=== PATIENT | female | born 2000 | race Two or more races ===

== ENCOUNTER 2023-10-14 08:59 | Emergency (ER) | payer OTHER ==
[~2023-10-14] VITALS: Ht 162.6 cm; Wt 67.3 kg
[2023-10-14] MEDS: DiphenhydrAMINE HCL 25 MG CAPSULE PO ONE (09:35)
[2023-10-14] MEDS: FAMOTIDINE 20 MG TABLET PO ONE (09:35)
[2023-10-14] MEDS ORDERED: PRED-554 PO (09:54)
[2023-10-14] MEDS: PredniSONE 20 MG TABLET PO ONE (10:11)
[2023-10-14 10:16] VITALS: BP 108/65; PULSE 80; RESP 18; TEMP 98.2
== END 2023-10-14 10:17 | disposition home or self-care (01) ==
LOC: EMS 08:59
DX: L50.0 Allergic urticaria (principal)
CPT/HCPCS: 99284; J7512

== ENCOUNTER 2023-10-15 10:05 | Emergency (ER) | payer OTHER ==
[~2023-10-15] VITALS: Ht 162.6 cm; Wt 67.3 kg
[~2023-10-15 10:05] MED LIST: PRED-554 PO
[2023-10-15] MEDS: SODIUM CHLORIDE 0.9% 1,000 ML IV ONE (12:47)
[2023-10-15] MEDS: DiphenhydrAMINE HCL 50 MG/ML VIAL IVP ONE (12:47)
[2023-10-15 13:01] LABS: BASOPHILS % (AUTO) 0.1 % (0.0-2.0); EOSINOPHILS % (AUTO) 0 % (1.0-6.0); HEMATOCRIT 38.7 % (36-46); HEMOGLOBIN 12.7 g/dL (12.0-16.0); LYMPHOCYTES # (AUTO) 0.6 K/uL (1.0-4.8); LYMPHOCYTES % (AUTO) 3.9 % (22.0-44.0); MEAN CORPUSCULAR HEMOGLOBIN 30.2 pg (26.0-34.0); MEAN CORPUSCULAR HGB CONC 32.8 G/dL (31.0-37.0); MEAN CORPUSCULAR VOLUME 92 fL (80-100); MONOCYTES # (AUTO) 0.2 K/uL (0.1-1.0); MONOCYTES % (AUTO) 1.5 % (2.0-9.0); PLATELET COUNT (AUTO) 336 K/uL (150-450); RED BLOOD CELL COUNT(AUTO) 4.21 MIL/uL (4.00-5.20); RED CELL DISTRIBUTION WIDTH 13.3 % (11.5-14.5); WHITE BLOOD COUNT (AUTO) 14.8 K/uL (4.5-11.0)
[2023-10-15 13:03] LABS: ANION GAP 11 mmol/L (8-16); CALCIUM, TOTAL 8.3 mg/dL (8.8-10.5); CARBON DIOXIDE 25 mmol/L (22-29); CHLORIDE 102 mmol/L (98-107); CREATININE 0.68 mg/dL (0.60-1.30); GLOMERULAR FILTR. RATE CALC > 60 mL/min (>60); GLUCOSE,RANDOM 122 mg/dL (70-110); POTASSIUM 3.6 mmol/L (3.5-5.1); SODIUM SERUM 138 mmol/L (136-145); UREA NITROGEN, BLOOD 6 mg/dL (7-18)
[2023-10-15 13:04] LABS: NEUTROPHILS % (AUTO) 94.5 % (40.0-70.0)
[2023-10-15 13:15] LABS: ALANINE AMINOTRANSFERASE 32 U/L (12-78); ALBUMIN 3.2 g/dL (3.4-5.0); ALKALINE PHOSPHATASE 85 U/L (46-116); ASPARTATE AMINOTRANSFERASE 23 U/L (15-37); BILIRUBIN,TOTAL 0.4 mg/dL (0.1-1.0); HCG,QUANTITATIVE 1 mIU/mL (0-6); TOTAL PROTEIN, SERUM 7.4 g/dL (6.4-8.2)
[2023-10-15 14:28] LABS: INFLUENZA A-RTPCR,COMBO NEGATIVE (NEGATIVE); INFLUENZA B-RTPCR,COMBO NEGATIVE (NEGATIVE); RESPIRATORY SYNCYTIAL VRS-PCR NEGATIVE (NEGATIVE); SARS COVID19 RTPCR, COMBO NEGATIVE (NEGATIVE)
[2023-10-15 15:09] VITALS: BP 108/73; PULSE 111; RESP 20; TEMP 98.4
[2023-10-16] MEDS ORDERED: CETI-89 PO (18:14)
[2023-10-16] MEDS ORDERED: METH4TAB3 PO (18:14)
[2023-10-16] MEDS ORDERED: DIPH25CA85 PO (18:14)
== END 2023-10-15 15:20 | disposition home or self-care (01) ==
LOC: EMS 10:08
DX: L50.0 Allergic urticaria (principal); Z20.822 Contact with and (suspected) exposure to COVID-19
CPT/HCPCS: 99283; 96374; 0241U; 96361; 80053; 84702; 85025; 87430; 36415; J1200; J7030

== ENCOUNTER 2023-10-16 16:44 | Emergency (ER) | payer OTHER ==
[~2023-10-16] VITALS: Ht 162.6 cm; Wt 67.3 kg
[2023-10-16 16:57] VITALS: TEMP 98.3
[2023-10-16 17:37] LABS: BASOPHILS % (AUTO) 0.2 % (0.0-2.0); EOSINOPHILS % (AUTO) 0.2 % (1.0-6.0); HEMATOCRIT 38.7 % (36-46); HEMOGLOBIN 12.8 g/dL (12.0-16.0); LYMPHOCYTES # (AUTO) 1.8 K/uL (1.0-4.8); LYMPHOCYTES % (AUTO) 15.8 % (22.0-44.0); MEAN CORPUSCULAR HEMOGLOBIN 30.2 pg (26.0-34.0); MEAN CORPUSCULAR VOLUME 92 fL (80-100); MONOCYTES # (AUTO) 0.2 K/uL (0.1-1.0); NEUTROPHILS # (AUTO) 9.3 K/uL (1.8-7.7); NEUTROPHILS % (AUTO) 81.8 % (40.0-70.0); PLATELET COUNT (AUTO) 362 K/uL (150-450); RED BLOOD CELL COUNT(AUTO) 4.22 MIL/uL (4.00-5.20); RED CELL DISTRIBUTION WIDTH 13.7 % (11.5-14.5); WHITE BLOOD COUNT (AUTO) 11.3 K/uL (4.5-11.0)
[2023-10-16 17:46] LABS: ANION GAP 13 mmol/L (8-16); CALCIUM, TOTAL 8.7 mg/dL (8.8-10.5); CARBON DIOXIDE 26 mmol/L (22-29); CHLORIDE 101 mmol/L (98-107); GLOMERULAR FILTR. RATE CALC > 60 mL/min (>60); GLUCOSE,RANDOM 99 mg/dL (70-110); POTASSIUM 3.3 mmol/L (3.5-5.1); SODIUM SERUM 140 mmol/L (136-145); UREA NITROGEN, BLOOD 5 mg/dL (7-18)
[2023-10-16 17:58] LABS: HCG,QUANTITATIVE < 1 mIU/mL (0-6); LIPASE 15 U/L (16-77)
[2023-10-16] MEDS ORDERED: METH4TAB3 PO (18:14)
[2023-10-16] MEDS ORDERED: CETI-89 PO (18:14)
[2023-10-16] MEDS ORDERED: DIPH25CA85 PO (18:14)
[2023-10-16 18:19] LABS: ALBUMIN 3.4 g/dL (3.4-5.0); BILIRUBIN,DIRECT 0.1 mg/dL (0.00-0.20); BILIRUBIN,TOTAL 0.5 mg/dL (0.1-1.0); TOTAL PROTEIN, SERUM 7.9 g/dL (6.4-8.2)
[2023-10-16] MEDS: DiphenhydrAMINE HCL 50 MG/ML VIAL IVP ONE (18:31)
[2023-10-16] MEDS: FAMOTIDINE 20 MG/2 ML VIAL IVP ONE (18:33)
[2023-10-16] MEDS: MethylPREDNISolone SOD SUCC 125 MG/2 ML VIAL IVP ONE (18:36)
[2023-10-16 19:50] LABS: APPEARANCE,URINE CLEAR (CLEAR); BILIRUBIN,URINE NEGATIVE (NEGATIVE); COLOR,URINE YELLOW (YELLOW); GLUCOSE, URINE (UA) NEGATIVE (NEGATIVE); KETONES,URINE =>150 mg/dL (NEGATIVE); LEUKOCYTE ESTERASE ,URINE NEGATIVE (NEGATIVE); NITRATE,URINE NEGATIVE (NEGATIVE); OCCULT BLOOD,URINE NEGATIVE (NEGATIVE); PH,URINE 6.5 (5.0-8.0); PROTEIN,URINE 30-70 mg/dL (NEGATIVE); SPECIFIC GRAVITIY, URINE 1.027 (1.003-1.030); UROBILINOGEN,URINE <=1.0 mg/dL (<=1.0)
[2023-10-16 20:00] VITALS: BP 124/75; PULSE 70; RESP 16
== END 2023-10-16 20:29 | disposition home or self-care (01) ==
LOC: EMS 16:44
DX: L50.0 Allergic urticaria (principal)
CPT/HCPCS: 99284; 96374; 96375; 80048; 80076; 81003; 83690; 84702; 85025; 36415; J1200; J3490; J2919

== ENCOUNTER 2024-03-26 14:07 | Emergency (ER) | payer OTHER ==
[~2024-03-26] VITALS: Ht 157.5 cm; Wt 69.1 kg
[~2024-03-26 14:07] MED LIST changes: +CETI-89 PO; +DIPH25CA85 PO; +METH4TAB3 PO; -PRED-554 PO
[2024-03-26 14:16] VITALS: TEMP 98.3
[2024-03-26 14:42] LABS: BASOPHILS % (AUTO) 0.1 % (0.0-2.0); EOSINOPHILS % (AUTO) 0.2 % (1.0-6.0); HEMOGLOBIN 14.2 g/dL (12.0-16.0); LYMPHOCYTES # (AUTO) 0.5 K/uL (1.0-4.8); LYMPHOCYTES % (AUTO) 6.3 % (22.0-44.0); MEAN CORPUSCULAR HEMOGLOBIN 30.1 pg (26.0-34.0); MEAN CORPUSCULAR VOLUME 91 fL (80-100); MONOCYTES # (AUTO) 0.3 K/uL (0.1-1.0); MONOCYTES % (AUTO) 3.6 % (2.0-9.0); NEUTROPHILS # (AUTO) 7.7 K/uL (1.8-7.7); PLATELET COUNT (AUTO) 365 K/uL (150-450); RED BLOOD CELL COUNT(AUTO) 4.72 MIL/uL (4.00-5.20); RED CELL DISTRIBUTION WIDTH 13.3 % (11.5-14.5); WHITE BLOOD COUNT (AUTO) 8.6 K/uL (4.5-11.0)
[2024-03-26 14:43] LABS: NEUTROPHILS % (AUTO) 89.8 % (40.0-70.0)
[2024-03-26 14:52] LABS: ANION GAP 12 mmol/L (8-16); CALCIUM, TOTAL 9.1 mg/dL (8.8-10.5); CARBON DIOXIDE 27 mmol/L (22-29); CHLORIDE 96 mmol/L (98-107); CREATININE 0.66 mg/dL (0.60-1.30); GLOMERULAR FILTR. RATE CALC > 60 mL/min (>60); GLUCOSE,RANDOM 103 mg/dL (70-110); POTASSIUM 3.5 mmol/L (3.5-5.1); SODIUM SERUM 135 mmol/L (136-145); UREA NITROGEN, BLOOD 8 mg/dL (7-18)
[2024-03-26 14:58] LABS: ALANINE AMINOTRANSFERASE 51 U/L (12-78); ALKALINE PHOSPHATASE 107 U/L (46-116); ASPARTATE AMINOTRANSFERASE 31 U/L (15-37); BILIRUBIN,TOTAL 0.6 mg/dL (0.1-1.0); LIPASE 26 U/L (16-77); TOTAL PROTEIN, SERUM 8.5 g/dL (6.4-8.2)
[2024-03-26 15:15] LABS: COVID AG,FIA SOURCE NASAL SWAB
[2024-03-26] MEDS: FAMOTIDINE 20 MG/2 ML VIAL IVP ONE (15:54)
[2024-03-26] MEDS: MAG HYDROX/ALUMINUM HYD/SIMETH 30 ML SUSPENSION UDCUP PO ONE (15:54)
[2024-03-26] MEDS: SODIUM CHLORIDE 0.9% 1,000 ML IV ONE (15:54)
[2024-03-26] MEDS: ONDANSETRON HCL 4 MG/2 ML VIAL IVP ONE (15:55)
[2024-03-26 16:03] LABS: SARS-COV2 (COVID) ANTIGEN,FIA Negative (Negative)
[2024-03-26 16:04] LABS: INFLUENZA TYPE A NEGATIVE FOR TYPE A (NEGATIVE); INFLUENZA TYPE B NEGATIVE FOR TYPE B (NEGATIVE)
[2024-03-26] MEDS ORDERED: ONDA-104 PO (17:07)
[2024-03-26] MEDS ORDERED: ACET-3385 PO (17:07)
[2024-03-26 17:26] VITALS: BP 121/88; PULSE 99; RESP 18; O2SAT 99
== END 2024-03-26 17:27 | disposition home or self-care (01) ==
LOC: EMS 14:09
DX: R19.7 Diarrhea, unspecified (principal); R11.2 Nausea with vomiting, unspecified; Z20.822 Contact with and (suspected) exposure to COVID-19
CPT/HCPCS: 99284; 96374; 96361; 96375; 87426; 80048; 80076; 83690; 84703; 85025; 87804; 36415; J3490; J2405; J7030